=== PATIENT | male | born 1955 | race Caucasian/White ===

== ENCOUNTER → 2024-03-26 11:16 | Outpatient (BNVA) | payer MEDICARE, SELFPAY | PROVIDERS: PCP Family Medicine; Visit Provider Family Medicine | DX: E11.40 Type 2 diabetes mellitus with diabetic neuropathy, unspecified (principal); E78.2 Mixed hyperlipidemia; I25.10 Atherosclerotic heart disease of native coronary artery without angina pectoris; I25.5 Ischemic cardiomyopathy; I10 Essential (primary) hypertension; E66.01 Morbid (severe) obesity due to excess calories; Z68.41 Body mass index [BMI] 40.0-44.9, adult; N18.2 Chronic kidney disease, stage 2 (mild); E11.42 Type 2 diabetes mellitus with diabetic polyneuropathy | CPT/HCPCS: 80053; 80061; 82043; 83036; 84443; 85025 ==

== ENCOUNTER → 2024-09-23 11:38 | Outpatient (BNVA) | payer MEDICARE, SELFPAY | PROVIDERS: PCP Family Medicine; Visit Provider Family Medicine | DX: E11.42 Type 2 diabetes mellitus with diabetic polyneuropathy (principal); E11.40 Type 2 diabetes mellitus with diabetic neuropathy, unspecified; Z12.5 Encounter for screening for malignant neoplasm of prostate | CPT/HCPCS: 83036; G0103 ==